=== PATIENT | male | born 1985 | race Two or more races ===

== ENCOUNTER 2025-07-23 14:33 | Emergency (ER) | payer MEDICAID ==
[~2025-07-23] VITALS: Ht 167.6 cm; Wt 74.6 kg
[2025-07-23 14:48] VITALS: TEMP 98.1
[2025-07-23] MEDS ORDERED: ACETAMINOPHEN 325 MG TABLET ONE (16:16)
[2025-07-23 16:19] LABS: PLATELET COUNT (AUTO) 245 K/uL (150-450); RED BLOOD CELL COUNT(AUTO) 5.33 MIL/uL (4.5-6.0); RED CELL DISTRIBUTION WIDTH 13.6 % (11.5-15.0); WHITE BLOOD COUNT (AUTO) 10.9 K/uL (4.3-11.0)
[2025-07-23 16:26] LABS: CALCIUM, SERUM 8.7 mg/dL (8.5-10.1); CREATININE 1.0 mg/dL (0.6-1.3); SODIUM SERUM 139.0 mmol/L (136-145); UREA NITROGEN, BLOOD 9.0 mg/dL (7-18)
[2025-07-23 16:32] LABS: ASPARTATE AMINOTRANSFERASE 26.0 U/L (15-37); TOTAL PROTEIN, SERUM 7.5 g/dL (6.4-8.2)
[2025-07-23] MEDS: ACETAMINOPHEN 325 MG TABLET PO ONE (16:38)
[2025-07-23 17:11] LABS: APPEARANCE,URINE CLEAR (CLEAR); BLOOD, URINE Trace-intact Ery/uL (NEGATIVE); LEUKOCYTE ESTERASE ,URINE Negative (NEGATIVE); NITRITE, URINE NEGATIVE (NEGATIVE); UGLUCOSE Negative (NEGATIVE)
[2025-07-23 17:13] LABS: ADD URINE CULTURE NO; SQUAMOUS EPITHELIAL CELL,UR None Seen /HPF (None Seen)
[2025-07-23] MEDS ORDERED: ACET325C7 PO (17:13)
[2025-07-23] MEDS ORDERED: LIDO30AD10 TP (17:13)
[2025-07-23] MEDS ORDERED: METH-649 PO (17:13)
[2025-07-23] MEDS ORDERED: IBUP-1955 PO (17:13)
[2025-07-23] MEDS ORDERED: KETOROLAC TROMETHAMINE 15 MG/ML VIAL ONE (17:54)
[2025-07-23] MEDS: KETOROLAC TROMETHAMINE 15 MG/ML VIAL IM ONE (18:00)
[2025-07-23 18:08] VITALS: BP 128/80; O2SAT 97
== END 2025-07-23 18:00 | disposition home or self-care (01) ==
LOC: ER 14:38 → EDBD 14:38 → ER 18:00
DX: S09.90XA Unspecified injury of head, initial encounter (principal); M54.2 Cervicalgia; M54.50 Low back pain, unspecified; R56.9 Unspecified convulsions; F17.200 Nicotine dependence, unspecified, uncomplicated; Z60.2 Problems related to living alone; Y04.0XXA Assault by unarmed brawl or fight, initial encounter; Y93.89 Activity, other specified; Y92.89 Other specified places as the place of occurrence of the external cause; Y99.9 Unspecified external cause status
CPT/HCPCS: 99284; 71045; 96372; 72040; 72110; 85025; 83690; 81001; 36415; 80053; J1885